=== PATIENT | female | born 1975 | race Caucasian/White ===

== ENCOUNTER 2021-09-15 01:10 | Emergency (ER) | payer MEDICAID ==
[~2021-09-15] VITALS: Ht 157.5 cm; Wt 68.2 kg
[~2021-09-15 01:10] MED LIST: ANTI14DR2 OT; LORA1TAB PO; NEOM10SO7 OT; PROP10TA10 PO
[2021-09-15 01:15] VITALS: BP 137/100
[2021-09-15] MEDS ORDERED: ketorolac trometh. 30mg/ml inj. IM ONE (01:20)
== END 2021-09-15 01:30 | disposition home or self-care (01) ==
LOC: ER 01:10
DX: M54.31 Sciatica, right side (principal); F15.10 Other stimulant abuse, uncomplicated; I10 Essential (primary) hypertension; F41.9 Anxiety disorder, unspecified
CPT/HCPCS: 96372; 99283; J1885

== ENCOUNTER 2024-02-17 09:48 | Emergency (ER) | payer MEDICAID ==
[~2024-02-17] VITALS: Ht 158.8 cm; Wt 67.9 kg
[2024-02-17 10:53] LABS: BILIRUBIN,URINE SMALL (Neg); CLARITY,URINE CLOUDY (Clear); COLOR,URINE YELLOW (Yellow); GLUCOSE, URINE NEGATIVE (Neg); KETONES,URINE TRACE mg/dl (Neg); LEUKOCYTE ESTERASE ,URINE SMALL (Neg); NITRITES, URINE POSITIVE (Neg); OCCULT BLOOD,URINE NEGATIVE (Neg); PROTEIN,URINE TRACE mg/dl (Neg)
[2024-02-17 10:55] LABS: RED CELL DISTRIBUTION WIDTH 15.9 % (11.5-14.5)
[2024-02-17 10:57] LABS: BASOPHILS % (AUTO) 0.6 % (0-1); EOSINOPHILS # (AUTO) 0.3 X10'3 (0-0.9); EOSINOPHILS % (AUTO) 4.4 % (0-6); HEMATOCRIT 37.7 % (35.0-45.0); LYMPHOCYTES # (AUTO) 2.6 X10'3 (1.1-4.8); LYMPHOCYTES % (AUTO) 36.5 % (21-51); MEAN CORPUSCULAR HEMOGLOBIN 33.8 PG (27.0-31.0); MEAN CORPUSCULAR HGB CONC 34.5 g/dL (33.0-36.5); MEAN PLATELET VOLUME 7.4 FL (7.4-10.4); MONOCYTES # (AUTO) 0.8 X10'3 (0-0.9); MONOCYTES % (AUTO) 11.4 % (2-12); NEUTROPHILS # (AUTO) 3.4 X10'3 (1.8-7.7); NEUTROPHILS % (AUTO) 47.1 % (42-75); PLATELET COUNT 447 X10'3 (140-440); RED BLOOD COUNT 3.85 X10'6 (4.20-5.60); WHITE BLOOD COUNT 7.2 X10'3 (4.5-11.0)
[2024-02-17 10:58] LABS: UA COLLECTION TYPE CLN CATCH MIDSTREAM
[2024-02-17 10:59] LABS: BACTERIA,URINE 3+ /HPF (Neg); MUCUS STRANDS MANY /LPF (Neg); SQUAMOUS EPITHELIAL CELL,UR MODERATE /LPF (FEW)
[2024-02-17 11:00] LABS: RBC,URINE 0-2 /HPF (0-2)
[2024-02-17 11:05] LABS: ALANINE AMINOTRANSFERASE 14 U/L (12-78); ALBUMIN 4.2 G/DL (3.4-5.0); ALBUMIN/GLOBULIN RATIO 1.1 (1.1-1.5); ALKALINE PHOSPHATASE 67 IU/L (46-116); ANION GAP 6 (8-16); ASPARTATE AMINO TRANSFERASE 6 U/L (10-37); BILIRUBIN,TOTAL 0.5 MG/DL (0.1-1.0); BLOOD UREA NITROGEN 10 MG/DL (7-18); BUN/CREATININE RATIO 12.5 (10.0-20.0); CHLORIDE 105 MMOL/L (99-107); GLUCOSE 101 MG/DL (70-104); POTASSIUM 3.7 MMOL/L (3.5-5.1); SODIUM 141 MMOL/L (135-145); eCRCL 69 ML/MIN; eGFR 76 ML/MIN
[2024-02-17] MEDS: normal saline 1000ML IV soln IVB ONE (11:23)
[2024-02-17] MEDS: hydrOXYzine 25 MG tablet PO ONE (11:45)
[2024-02-17 12:18] VITALS: BP 130/91; PULSE 76; RESP 16; TEMP 98.5; O2SAT 100
[2024-02-17] MEDS ORDERED: METR-159 PO (12:39)
[2024-02-17] MEDS ORDERED: CEPH-585 PO (12:39)
[2024-02-17] MEDS ORDERED: DIF150T PO (12:39)
[2024-02-17] MEDS: ondansetron 4mg rapidly disintigrating tab PO ONE (12:58)
[2024-02-17] MEDS: azithromycin 250mg tablet PO ONE (12:59)
[2024-02-17] MEDS: CefTRIAXone 500MG IM Kit w/LIDOcaine IM ONE (13:02)
[2024-02-21 10:37] LABS: CHLAMYDIA TRACHOMATIS, NAA Negative (Negative)
== END 2024-02-17 14:49 | disposition home or self-care (01) ==
LOC: ER 09:49
DX: N39.0 Urinary tract infection, site not specified (principal); R31.9 Hematuria, unspecified; N76.0 Acute vaginitis; I10 Essential (primary) hypertension; Z79.2 Long term (current) use of antibiotics; Z79.899 Other long term (current) drug therapy
CPT/HCPCS: 36415; 71045; 80053; 81001; 84145; 85025; 87077; 87088; 87186; 87491; 87591; 96360; 96372; 99284; J0696; J7030; Q0177